=== PATIENT | female | born 1935 | race Caucasian/White ===

== ENCOUNTER 2016-11-27 13:03 | Inpatient (IN) ==
[2016-11-27 13:53] LABS: ALLEN TEST YES; BE 1.2 mmoll (-3.0-3.0); BLOOD TYPE ARTERIAL; DRAW SITE R RADIAL; O2(CT) 15.6 mL/dL (15.0-23.0); PCO2(98.6) 41 mmHg (35-45); PO2(98.6) 68 mmHg (60-100); SAMPLE BLOOD; SAO2 96.5 % (95.0-100.0); THB 11.8 g/dL (11.5-17.4); pH(98.6) 7.41 (7.35-7.45)
[2016-11-27 13:54] LABS: MODALITY ROOM AIR
[2016-11-27 14:19] LABS: URINE MICRO REVIEW NEEDED? NO; URINE SOURCE CATH
[2016-11-27 14:26] LABS: BILIRUBIN URINE NEGATIVE (NEGATIVE); BLOOD URINE NEGATIVE (NEGATIVE); COLOR YELLOW; GLUCOSE URINE NEGATIVE (NEGATIVE); LEUKOCYTES URINE SMALL (NEGATIVE); NITRITE URINE POSITIVE (NEGATIVE); PROTEIN URINE TRACE mg/dL (NEGATIVE); SP GRAVITY URINE 1.011; TURBIDITY URINE CLEAR (CLEAR); UR EPITHELIAL CELLS <10 /HPF (<10); URINE BACTERIA 4+ /HPF; URINE CULTURE NEEDED? YES; URINE RBC <10 /HPF (<10); UROBILINOGEN URINE NORMAL (NORMAL)
--- NOTE | 2016-11-27 14:44 | Diag Imaging Result Doc PS360 ---
CT HEAD W/O CONTRAST - 11/27/2016 INDICATION: AMS ED3 TECHNIQUE: A CT dose reduction protocol was used. COMPARISON: 11/21/2016 FINDINGS: Stable atrophy and chronic microvascular disease. No intracranial mass or hemorrhage. IMPRESSION: No acute disease or change from prior. Electronically signed by Spike Stone 11/27/2016 2:41 PM
--- NOTE | 2016-11-27 14:47 | Diag Imaging Result Doc PS360 ---
CHEST-PORTABLE - 11/27/2016 INDICATION: AMS TECHNIQUE: COMPARISON: 11/21/2016 FINDINGS: Lung volumes are lower. Accounting for this, there is decrease in the perihilar infiltrates. Heart size is borderline stable from prior. No substantial infiltrates. IMPRESSION: Mixed changes. Improved from prior. Electronically signed by Spike Stone 11/27/2016 2:45 PM
[2016-11-27] MEDS ORDERED: ROCEPHIN 1 GM in NS 50 ML IV ONE (15:27)
[2016-11-27 15:31] LABS: MANUAL DIFF NEEDED? NO
[2016-11-27] MEDS ORDERED: LABETALOL IV ONE (15:37)
[2016-11-27] MEDS ORDERED: LABETALOL ONE (15:39)
[2016-11-27 15:45] LABS: BASO% 0.5 % (0.0-0.8); EOS# 0.34 X1000 (0.0-0.7); EOS% 5.6 % (0.0-10.0); HEMATOCRIT 38.3 % (37.0-47.0); HEMOGLOBIN 12.5 g/dL (12.0-16.0); IMM GRAN# 0.06 X1000 (0.0-0.04); LYMPH# 1.38 X1000 (1.2-3.4); LYMPH% 22.9 % (20.5-51.1); MCH 29.6 PG (27-31); MCHC 32.6 g/dL (33-37); MCV 90.5 FL (81-99); MONO# 0.53 X1000 (0.11-0.59); MONO% 8.8 % (1.7-9.3); MPV 10.1 FL (7.4-10.4); NEUT% 61.2 % (42.2-75.2); PLT 371 X1000 (130-400); RBC 4.23 XMIL (4.2-5.4)
[2016-11-27 15:51] LABS: INR 1.08; PROTIME 11.4 Seconds (9.2-11.7); PTT 28.5 Seconds (22.0-36.0)
[2016-11-27 16:00] LABS: ALBUMIN 3.2 g/dL (3.5-5.0); CALCIUM 8.9 mg/dL (8.8-10.2); POTASSIUM 4.6 mmol/L (3.5-5.1); TOTAL BILIRUBIN 0.45 mg/dL (0.20-1.00)
--- NOTE | 2016-11-27 16:34 | PROVIDER DOCUMENTATION ---
This chart was entered by Leeann Álvarez Scribe, acting as scribe for Stacie Thomas MD. HPI-General Adult - General Chief Complaint: Altered Mental Status Stated Complaint: AMS Time Seen by Provider: 11/27/16 13:23 Source: EMS Allergies/Adverse Reactions: Patient Allergies Allergy/AdvReac Type Severity Reaction Status Date / Time levofloxacin [From Levaquin] Allergy RASH Verified 11/21/16 16:57 Penicillins Allergy HIVES Verified 11/21/16 16:57 Sulfa (Sulfonamide Allergy FEVER Verified 11/21/16 16:57 Antibiotics) Home Medications: Home Medication List Medication Instructions Recorded Confirmed Last Taken Type Fenofibric Acid D.r. [Trilipix] 135 mg PO DAILY 11/09/13 11/21/16 11/21/16 History Metformin [Glucophage] 750 mg PO HS 11/09/13 11/21/16 1 Day Ago History Omeprazole [Prilosec] 40 mg PO DAILY PRN PRN 11/09/13 11/21/16 1 Month Ago History Raloxifene [Evista] 60 mg PO DAILY 11/09/13 11/21/16 11/21/16 History Simvastatin 80 mg PO HS 11/09/13 11/21/16 1 Day Ago History ENALApril [Vasotec] 10 mg PO BID 02/19/14 04/27/16 11/21/16 History Levothyroxine Sodium [Levoxyl] 137 mcg PO DAILY 02/19/14 11/21/16 11/21/16 History Tramadol/APAP [Ultracet 1 each PO Q6H PRN PRN 12/21/15 11/21/16 1 Day Ago History 37.5MG/325Mg] Buspirone HCl [Buspirone HCl] 15 mg PO QAM 11/21/16 11/21/16 11/21/16 History Clindamycin [Cleocin] 150 mg PO Q6HR #30 capsule 11/21/16 Unknown Rx Hydrocodone Bit/Acetaminophen 1 each PO Q8H PRN 11/21/16 11/21/16 11/20/16 History [Hydrocodon-Acetaminophen 5-325] Nadolol [Corgard] 20 mg PO DAILY 11/21/16 11/21/16 11/21/16 History Trazodone HCl 150 mg PO QHS 11/21/16 11/21/16 1 Day Ago History - History of Present Illness -Gen Adult Nature of Presenting Problems: Pt is 81 y/o F presents to the ED via EMS for generalized malaise and pain "all over". EMS states daughter called EMS. EMS states Pt was seen in ED 2 days ago for possible stroke. EMS states Pt seen PCP yesterday and was diagnosed with sinusitis. Location of Pain/Injury: reports: generalized Pain Radiation: reports: no radiation Quality of Pain: reports: aching Severity: reports: mild Onset/Duration: reports: just prior to arrival Timing: reports: still present Context/Activities at Onset: reports: light activity Modifying Factors: improves with: nothing Associated Symptoms: reports: muscle aches. denies: anxiety, arm pain, back/ neck pain, chest pain, constipation, cough, diaphoresis, diarrhea, dizziness, EENT symptoms, fatigue, fever/chills, genitourinary problems, headaches, heartburn, joint pain, loss of appetite, malaise, sinus congestion/drainage, nausea, rash, seizure, shortness of breath, sensory/motor loss, pain with inspiration, swelling/mass in abdomen, syncope, vomiting, weakness, trouble walking Similar Symptoms Previously?: Yes Recently seen or treated by another doctor?: Yes (seen PCP yesterday ) Review of Systems - Adult - REVIEW OF SYSTEMS - ADULT Constitutional: denies: chills, fever Eyes: denies: decreased vision, blurred vision, double vision Ears, Nose, Mouth & Throat: denies: ear pain, nose pain, mouth swelling, throat pain Cardiovascular: denies: chest pain, heart murmur, irregular heart rate Respiratory: denies: cough, shortness of breath, wheezing Gastrointestinal: denies: abdominal pain, diarrhea, nausea, vomiting Genitourinary: denies: dysuria, flank pain, hematuria Musculoskeletal: reports: muscle aches (generalized). denies: back pain, joint pain, neck pain Integumentary: denies: hives, itching, rash Neurological: reports: other (confusion). denies: dizziness/vertigo, headache/ migraines, numbness, seizure, syncope Psychiatric: denies: anxiety, depression, suicidal thoughts Endocrine: reports: no symptoms reported Hematologic/Lymphatic: reports: no symptoms reported Allergic/Immunologic: reports: no symptoms reported All Other Systems: Reviewed and Negative Past History - Adult - PAST MEDICAL HISTORY-ADULT Review of Records: reports: Nursing Assessment Review, Medications Reviewed, Social history reviewed & non-contributory. Major Childhood Illnesses: reports: denies history Cardiovascular: reports: HTN Respiratory: reports: denies history Gastrointestinal: reports: denies history Obstetrical/Gynecological: reports: denies history Genitourinary: reports: denies history Musculoskeletal: reports: other (bilateral knee replacement) Neurological: reports: denies history Endocrine/Immune: reports: Diabetes, thyroid disorder Other Conditions: reports: denies history - PRIOR SURGERIES/PROCEDURES Surgical/Procedure History: reports: hysterectomy, tonsillectomy, joint replacement (knee and hip) - IMMUNIZATION STATUS Childhood Immunizations: See Nurse Assessment Flu Vaccine: See Nurse Assessment - FAMILY HISTORY Family History: reviewed, not pertinent - SOCIAL HISTORY Smoking: quit greater than 1 year, cigarettes Substance Use: denies Living Situation: family Physical Exam-General - PHYSICAL EXAM-ADULT Initial Vital Signs Reviewed: Yes - CONSTITUTIONAL General Appearance: alert, no apparent distress, slow to respond, other ( confusion). negative: lethargic - EYES Eyes: PERRL/EOMI, pink conjunctivae. negative: pale conjunctivae, sunken eyes - HEAD, EARS, NOSE, MOUTH & THROAT HENMT: normocephalic/atraumatic, moist mucous membranes, normal ENT inspection. negative: angioedema, hearing deficit - NECK Neck: non-tender, normal inspection. negative: lymphadenopathy, tender lateral - RESPIRATORY Respiratory: chest non-tender, lungs clear, normal breath sounds. negative: crackles, rhonchi, increased rate - CARDIOVASCULAR Cardiovascular: normal peripheral pulses, regular rate, rhythm. negative: tachycardia, systolic murmur - GASTROINTESTINAL (ABDOMEN) Abdominal Exam: normal bowel sounds, non tender, soft. negative: distended, rebound - LYMPHATIC Lymphatic: no adenopathy. negative: enlargement, streaking - MUSCULOSKELETAL Back Exam: normal inspection, no CVA tenderness, no vertebral tenderness. negative: ecchymosis, swelling Extremity: normal range of motion, normal inspection. negative: erythema, swelling - SKIN Integumentary: normal color, normal turgor, warm/dry. negative: ecchymosis, erythema, pallor - NEUROLOGIC Neurologic: other (confusion). negative: grossly normal, facial droop - PSYCHIATRIC Psych/Mental Status: other (confusion). negative: normal mood/affect, anxious, paranoid, tearful Progress - PLAN OF CARE/RESULTS Progress/Plan/Lab Results: Vital Signs - 8 hr 11/27/16 13:30 Temperature 97.9 F Pulse Rate 72 Respiratory Rate 18 Blood Pressure 152/138 O2 Sat by Pulse Oximetry 98 Laboratory Results - last 24 hr 11/27/16 11/27/16 11/27/16 13:40 13:45 15:16 WBC RBC Hgb Hct MCV MCH MCHC RDW Std Deviation Plt Count MPV Immature Gran % (Auto) Neut % (Auto) Lymph % (Auto) [place] % (Auto) Eos % (Auto) Baso % (Auto) Immature Gran # (Auto) Neut # (Auto) Lymph # (Auto) [place] # (Auto) Eos # (Auto) Baso # (Auto) PT INR PTT (Actin FS) Specimen Type ARTERIAL Sample Site R RADIAL pH 7.41 pCO2 41 pO2 68 HCO3 25.8 Base Excess 1.2 Oxyhemoglobin 94.1 L ABG O2 Sat (Calculated) 15.6 ABG O2 Saturation 96.5 ABG Carboxyhemoglobin 1.50 ABG Methemoglobin 1.0 Sterling Test YES A-a O2 Difference 30.0 Total Hemoglobin 11.8 Lactate 0.60 Blood Gas Modality ROOM AIR FiO2 % 21.0 Sodium Potassium Chloride Carbon Dioxide Anion Gap BUN Creatinine Estimated GFR/1.73 m2 BUN/Creatinine Ratio Glucose Calculated Osmolality Calcium Total Bilirubin AST ALT Alkaline Phosphatase Creatine Kinase Troponin T Total Protein Albumin Globulin Albumin/Globulin Ratio Plasma Lactate Urine Source CATH Urine Color YELLOW Urine Turbidity CLEAR Urine pH 6.0 Ur Specific Mcclave 1.011 Urine Protein TRACE A Ur Glucose (Stick) NEGATIVE Ur Ketones (Stick) NEGATIVE Urine Blood NEGATIVE Urine Nitrite POSITIVE A Urine Bilirubin NEGATIVE Urobilinogen Dipstick NORMAL Urine Leukocytes SMALL A Urine WBC (Auto) 10-20 A Urine RBC (Auto) <10 U Epithel Cells (Auto) <10 Urine Bacteria (Auto) 4+ Plasma/Serum Ethyl Alc 11/27/16 11/27/16 11/27/16 15:16 15:16 15:16 WBC 6.02 RBC 4.23 Hgb 12.5 Hct 38.3 MCV 90.5 MCH 29.6 MCHC 32.6 L RDW Std Deviation 15.2 H Plt Count 371 MPV 10.1 Immature Gran % (Auto) 1.0 H Neut % (Auto) 61.2 Lymph % (Auto) 22.9 Essex % (Auto) 8.8 Eos % (Auto) 5.6 Baso % (Auto) 0.5 Immature Gran # (Auto) 0.06 H Neut # (Auto) 3.68 Lymph # (Auto) 1.38 Essex # (Auto) 0.53 Eos # (Auto) 0.34 Baso # (Auto) 0.03 PT INR PTT (Actin FS) Specimen Type Sample Site pH pCO2 pO2 HCO3 Base Excess Oxyhemoglobin ABG O2 Sat (Calculated) ABG O2 Saturation ABG Carboxyhemoglobin ABG Methemoglobin Sterling Test A-a O2 Difference Total Hemoglobin Lactate Blood Gas Modality FiO2 % Sodium 133 L Potassium 4.6 Chloride 96 L Carbon Dioxide 27 Anion Gap 10 BUN 23 H Creatinine 1.3 H Estimated GFR/1.73 m2 39 BUN/Creatinine Ratio 18 Glucose 90 Calculated Osmolality 270 Calcium 8.9 Total Bilirubin 0.45 AST 28 ALT 12 Alkaline Phosphatase 30 L Creatine Kinase 39 Troponin T Total Protein 6.0 L Albumin 3.2 L Globulin 2.8 Albumin/Globulin Ratio 1.1 Plasma Lactate 0.9 Urine Source Urine Color Urine Turbidity Urine pH Ur Specific Mcclave Urine Protein Ur Glucose (Stick) Ur Ketones (Stick) Urine Blood Urine Nitrite Urine Bilirubin Urobilinogen Dipstick Urine Leukocytes Urine WBC (Auto) Urine RBC (Auto) U Epithel Cells (Auto) Urine Bacteria (Auto) Plasma/Serum Ethyl Alc 11/27/16 11/27/16 15:16 15:16 WBC RBC Hgb Hct MCV MCH MCHC RDW Std Deviation Plt Count MPV Immature Gran % (Auto) Neut % (Auto) Lymph % (Auto) [place] % (Auto) Eos % (Auto) Baso % (Auto) Immature Gran # (Auto) Neut # (Auto) Lymph # (Auto) [place] # (Auto) Eos # (Auto) Baso # (Auto) PT 11.4 INR 1.08 PTT (Actin FS) 28.5 Specimen Type Sample Site pH pCO2 pO2 HCO3 Base Excess Oxyhemoglobin ABG O2 Sat (Calculated) ABG O2 Saturation ABG Carboxyhemoglobin ABG Methemoglobin Sterling Test A-a O2 Difference Total Hemoglobin Lactate Blood Gas Modality FiO2 % Sodium Potassium Chloride Carbon Dioxide Anion Gap BUN Creatinine Estimated GFR/1.73 m2 BUN/Creatinine Ratio Glucose Calculated Osmolality Calcium Total Bilirubin AST ALT Alkaline Phosphatase Creatine Kinase Troponin T 0.017 Total Protein Albumin Globulin Albumin/Globulin Ratio Plasma Lactate Urine Source Urine Color Urine Turbidity Urine pH Ur Specific Mcclave Urine Protein Ur Glucose (Stick) Ur Ketones (Stick) Urine Blood Urine Nitrite Urine Bilirubin Urobilinogen Dipstick Urine Leukocytes Urine WBC (Auto) Urine RBC (Auto) U Epithel Cells (Auto) Urine Bacteria (Auto) Plasma/Serum Ethyl Alc Orders Category Date Time Status Cardiac Monitoring DIRECTED Care 11/27/16 13:39 Active Finger Stick Blood Sugar (ED) DIRECTED Care 11/27/16 13:39 Active Mann Cath Insertion ORDERED Care 11/27/16 14:18 Inactive IV Insertion ORDERED Care 11/27/16 13:57 Completed Mini Cath [Straight Catheterization] ORDERED Care 11/27/16 13:58 Active Saline Loc NOW Care 11/27/16 13:39 Active CHEST-PORTABLE [RAD] Stat Exams 11/27/16 13:[address] HEAD W/O CONTRAST [CT] Stat Exams 11/27/16 13:40 Completed ABG [RESP] Routine Lab 11/27/16 13:40 Completed ALCOHOL BLOOD Stat Lab 11/27/16 15:16 Completed BLOOD CULTURE [BLDCUL] Stat Lab 11/27/16 15:12 Results CBC WITH ELECTRONIC DIFF [HEME] Stat Lab 11/27/16 15:16 Completed CK PROFILE [SP CHEM] Stat Lab 11/27/16 15:16 Completed COMPREHENSIVE METABOLIC PANEL [CHEM] Stat Lab 11/27/16 15:16 Completed LACTATE, PLASMA [CHEM] Stat Lab 11/27/16 15:16 Completed PROTIME WITH INR [COAG] Stat Lab 11/27/16 15:16 Completed PTT [COAG] Stat Lab 11/27/16 15:16 Completed TROPONIN T Stat Lab 11/27/16 15:16 Completed URINALYSIS W/POSS RFLX CULT-1 [URINALYSIS] Stat Lab 11/27/16 13:45 Completed URINE CULTURE [RM] Routine Lab 11/27/16 14:31 Received CefTRIAXONE [Rocephin] 1 gm Med 11/27/16 15:27 Discontinued 0.9% Sodium Chloride Inj [Ns] 50 ml IV NOW Labetalol Med 11/27/16 15:37 Discontinued 15 mg IV NOW ONE Labetalol Med 11/27/16 15:39 Discontinued 20 mg .ROUTE .STK-MED ONE Pulse Oximetry Stat Oth 11/27/16 13:39 Active EKG [EKG] Stat Ther 11/27/16 13:39 Ordered Result Diagrams: 11/27/16 15:16 11/27/16 15:16 - XRAY 1 XRAY Study: Chest Impression: Normal XRAY Interpretation: mixed changes. improved from prior - CT/MRI 1 CT Study: Head Impression: Normal CT Results: no acute disease or change from prior - CONSULTS/PCP/HOSPITALIST Notification #1 *Consult/PCP/Hospitalist*: Dr. Domínguez Time Discussed: 16:27 (Admit to Dr. Choi ) Reason/Comments: Dr. Thomas consulted with Dr. Domínguez about Pt Consult Disposition: Will see in ED Departure - Departure Date of Disposition Decision: 11/27/16 Time of Disposition Decision: 16:31 DIAGNOSIS: Altered mental status, UTI (urinary tract infection), Generalized weakness, HTN (hypertension) Disposition: ADMITTED INPATIENT 09 Certified Medical Emergency: Emergent Condition: Stable Referrals and Follow-Ups: Orlando Choi Jr, MD [Primary Care Provider] - - Critical Care Note This patient required my direct & personal management of CC.: No Attestation - Physician/ PARRISH Attestation Patient care was provided by Advanced Practice Provider:: No The physician spent face to face time with patient:: Yes Advanced Practice Provider documentation review:: Supervising physician onsite and consulted in the evaluation and care of this patient. The physician did have a face to face encounter with the patient. This chart was documented by the indicated scribe, (Leeann Álvarez Scribe) and accurately reflects the services I performed and decisions made by me, Stacie Thomas MD, as attested by the provider's signature.
[2016-11-27] MEDS ORDERED: ZOFRAN IV PRN (20:06)
[2016-11-27] MEDS: ASPIRIN PO SCH (20:06)
[2016-11-27] MEDS: TYLENOL PO PRN (20:34)
--- NOTE | 2016-11-27 20:34 | HISTORY AND PHYSICAL ---
CHIEF COMPLAINT: Confusion. HISTORY OF PRESENT ILLNESS: The patient is an 81-year-old white female followed by Dr. Orlando Choi who presents to the emergency room for evaluation. She is brought in by her and her daughter. They relate that the patient was found this morning around 10:30 to have confusion, difficulty with word finding and some garbled speech and general confusion and not able to walk due to some weakness in her legs. There has been no history of fever, the patient does admit to some dysuria. She had been sick for about 6 days and was brought into the ER about 6 days ago for evaluation, was thought to have a sinus infection at that time and was treated with clindamycin for that through the ER. She followed up with Dr. Chio 3 days ago in his office and adjustments were made on her blood pressure medicine as she was running high. She also has been having chronic back pain over the last year and has been followed by Dr. Anthony Cartagena for that, neurosurgery. She also has undergone a right hip replacement per Dr. Ellison, orthopedists in July 2016 but pain in her back area persisted so Dr. Cartagena has been following her and she was scheduled to have an epidural placed yesterday but that was not performed as the patient's blood pressure was found to be very high with systolics well above 200 so she was sent home. She did well, was ambulating with a walker without great difficulty but this morning around 10:30 began having problems. MEDICATIONS: Prior to admission are trazodone 150 mg p.o. at bedtime, Ultracet 1 p.o. q.6 hours p.r.n. pain, Zocor 80 mg p.o. at bedtime, Evista 60 mg p.o. daily, Prilosec 40 mg p.o. daily p.r.n., Corgard 20 mg p.o. daily, metformin 750 mg p.o. at bedtime, Levoxyl 137 mcg 1 p.o. daily, Hurley 5 one p.o. q.8 hours p.r.n. pain, Trilipix 135 mg p.o. daily, Vasotec 10 mg p.o. b.i.d., clindamycin 150 mg p.o. q.6 hours, BuSpar 15 mg p.o. q.a.m. ALLERGIES: To Levaquin, penicillin, sulfa. PAST MEDICAL HISTORY: 1. Hypertension. 2. Hyperlipidemia. 3. Hearing loss. 4. Osteopenia. 5. Type 2 diabetes mellitus. 6. Vertigo. 7. Osteoarthritis. 8. Chronic low back pain with history of herniated disk followed by Dr. Anthony Cartagena. PAST SURGICAL HISTORY: 1. Right total hip replacement July 2016. 2. Bladder surgery x3. 3. Cataract surgery. 4. Hysterectomy 1987. 5. Right total knee and left total knee 2004. 6. Tonsillectomy 1958. 7. Cystocele and rectocele repair 1983. 8. Bilateral carpal tunnel syndrome release on the right in the and on the left 2009. 9. Hemorrhoidectomy in 1983. FAMILY HISTORY: Notable for stroke in her father, hypertension in her father and mother, type 2 diabetes mellitus in her mother and sister. CAD in her father and mother and son, brother with Alzheimer dementia. SOCIAL HISTORY: Patient lives in the local area. She is , is a former smoker, does not drink alcohol. ROS: Positive for dysuria. PHYSICAL EXAMINATION: VITAL SIGNS: Temperature 97.9 degrees, pulse 72, respirations 18, blood pressure 152/138, O2 saturation on 2 L in room air 98%, weight 160, height 5 feet 4 inches tall. GENERAL: Elderly white female confused, does look about, she is alert. She seems to have garbled speech. She is alert and oriented x1. SKIN: No rash or skin breakdown. HEENT: NC/AT, IZA, EOMI. Sclerae clear. OP no redness. Tongue in the midline. NECK: No LA, TMG, JVD, bruits. CARDIOVASCULAR: RRR without distinct murmur. LUNGS: Fairly clear to auscultation. ABDOMEN: Soft, active bowel sounds, nontender, nondistended, no mass, organomegaly. BREASTS/PELVIC/RECTAL: Deferred. EXTREMITIES: No calf tenderness, cords or edema. NEURO: Cranial nerves 2-12 are intact. She moves all extremities well. DTRs are equal. UES and LE 2+ over 4. Normal Babinski sign bilaterally, garbled speech is prominent with general confusion, alert, oriented x1, word finding difficulties , garbled speech most prominent. LABS: White count of 6.02, hemoglobin 12.5, hematocrit 38.3, MCV 90.5, platelets 371,000, neutrophils 61, lymphocytes 23, monocytes 8.8. PT 11.4, INR 1.08, PTT 28.5. ABG on room air reveals pH 7.41, pCO2 41, PO2 68, HC03 25.8, O2 saturation 96.5. Sodium 133, potassium 4.6, chloride 96, CO2 27, BUN 23, creatinine 1.3, glucose 90, calcium 8.9, total bilirubin 0.45, AST 28, ALT 12, alkaline phosphatase 30, total protein 6.0, albumin 3.2, creatine kinase total 39, troponin 0.017, plasma lactate 0.9. Urinalysis shows positive nitrite, 10-20 WBCs, less than 10 epithelial cells, 4+ bacteria, negative blood. Blood alcohol level 0. CT scan of the head without contrast was done and shows stable atrophy and chronic microvascular disease. No intracranial mass or hemorrhage. Chest x-ray shows decrease in minimal perihilar infiltrates, no substantial infiltrates, heart size borderline. ASSESSMENT: 1. Mental status change with garbled speech. Suspect acute ischemic cerebrovascular accident. 2. Urinary tract infection. 3. Pronounced hypertension. 4. Dyslipidemia. 5. Type 2 diabetes mellitus. 6. Chronic back pain. 7. Anxiety. 8. Hypothyroidism. 9. Gastroesophageal reflux disease. 10. Osteopenia. 11. Chronic insomnia. PLAN: At this time will admit the patient to the ICU with telemetry bed, monitor blood pressure and hold BP medications. Will allow this to run high at this point. She is not a candidate for tPA as it has been greater than 6 hours since her development of symptoms and less than 6 months since a major surgery in her right hip. Will start aspirin 325 mg daily if her swallowing mechanism is spared. Keep her NPO otherwise. Monitor Accu-Cheks. She has received 1 g of Rocephin IV in the emergency room. Will continue that q.24 hours while monitoring urine culture and blood cultures which have been obtained. Will follow neurological checks, start speech therapy. Check carotid Dopplers and echocardiogram. cc: Vamsi Domínguez MD
[2016-11-27] MEDS: NS + KCL 20 MEQ 1,000 ML IV SCH (23:09)
[2016-11-28 05:45] LABS: FREE T4 1.7 ng/dL (0.93-1.70)
[2016-11-28] MEDS ORDERED: SYNTHROID PO ONE (08:26)
[2016-11-28] MEDS ORDERED: PRILOSEC PO PRN (08:32)
--- NOTE | 2016-11-28 09:06 | PROGRESS NOTE ---
DATE: 11/28/2016 SUBJECTIVE: Patient much improved this morning. She remains in the ICU. She is alert and oriented x4. OBJECTIVE: Vital Signs: Afebrile. Pulse 73, respirations 19, blood pressure has gone up this morning above 200 to 212 systolic. It was 141/60 at 3 a.m. CV: RRR. Lungs: CTA. Abdomen: Nontender and nondistended. Extremities: No edema. CULTURES: Urine culture and blood cultures remain in progress. ASSESSMENT: 1. Mental status change possibly multifactorial related to urinary tract infection. Rule out transient ischemic attack or cerebrovascular accident. Rule out pain medication buildup. 2. Urinary tract infection. 3. Pronounced hypertension. 4. Dyslipidemia. 5. Type 2 diabetes mellitus. 6. Chronic back pain. 7. Anxiety. 8. Hypothyroidism. 9. Gastroesophageal reflux disease. 10. Osteopenia. 11. Chronic insomnia. PLAN: Plan at this time is that we will advance her diet to a diabetic diet. Resume home BP medications of Corgard and Vasotec. Give p.r.n. hydralazine to keep her blood pressure in moderate control at this time. Continue daily aspirin and Rocephin. Resume home medications, except for most of her pain medication, and will hold her metformin at this time. Monitor Accu- Chek's on the ADA diet. We will follow her urine culture and blood cultures. Keep her in ICU today and hopefully transfer her out to a telemetry bed tomorrow if she continues to improve. Will plan on carotid Dopplers and echocardiogram Wednesday when those tests are readily available. cc: MD Orlando Romo Jr, MD
[2016-11-28] MEDS: ASPIRIN PO SCH (09:43)
[2016-11-28] MEDS: VASOTEC PO SCH ×2 (09:43→20:14)
[2016-11-28] MEDS: CORGARD PO SCH (09:43)
[2016-11-28] MEDS: BUSPAR PO SCH (09:44)
[2016-11-28] MEDS: TRILIPIX PO SCH (09:44)
[2016-11-28] MEDS: APRESOLINE IV PRN ×2 (11:37→23:22)
[2016-11-28] MEDS: ULTRACET 37.5MG/325MG PO PRN ×2 (11:53→19:24)
[2016-11-28] MEDS: TYLENOL PO PRN (15:03)
[2016-11-28] MEDS: ROCEPHIN 1 GM in NS 50 ML IV SCH (15:04)
[2016-11-28] MEDS: NS + KCL 20 MEQ 1,000 ML IV SCH (19:17)
[2016-11-28] MEDS: ZOCOR PO SCH (20:13)
[2016-11-29 05:07] LABS: MANUAL DIFF NEEDED? NO
[2016-11-29 05:25] LABS: BASO% 0.2 % (0.0-0.8); EOS# 0.45 X1000 (0.0-0.7); EOS% 4.2 % (0.0-10.0); HEMATOCRIT 37.9 % (37.0-47.0); HEMOGLOBIN 12.4 g/dL (12.0-16.0); IMM GRAN# 0.05 X1000 (0.0-0.04); IMM GRAN% 0.5 % (0.0-0.5); LYMPH# 1.71 X1000 (1.2-3.4); MCH 29.5 PG (27-31); MCHC 32.7 g/dL (33-37); MCV 90.2 FL (81-99); MONO# 1.12 X1000 (0.11-0.59); MONO% 10.5 % (1.7-9.3); NEUT% 68.6 % (42.2-75.2); PLT 458 X1000 (130-400)
[2016-11-29 05:35] LABS: CALCIUM 8.5 mg/dL (8.8-10.2); POTASSIUM 4.2 mmol/L (3.5-5.1)
[2016-11-29] MEDS: SYNTHROID PO SCH (06:04)
[2016-11-29] MEDS: CORGARD PO SCH (08:26)
[2016-11-29] MEDS: TRILIPIX PO SCH (08:27)
[2016-11-29] MEDS: ASPIRIN PO SCH (08:27)
[2016-11-29] MEDS: BUSPAR PO SCH (08:27)
[2016-11-29] MEDS: VASOTEC PO SCH ×2 (08:27→20:30)
[2016-11-29] MEDS ORDERED: SALINE LOCK IV FLUID XX ONE (11:16)
[2016-11-29] MEDS: ULTRACET 37.5MG/325MG PO PRN (11:56)
[2016-11-29] MEDS ORDERED: HALDOL IV ONE (11:59)
[2016-11-29] MEDS ORDERED: HALDOL IV PRN (12:00)
[2016-11-29] MEDS: CATAPRES PO PRN (12:10)
--- NOTE | 2016-11-29 12:29 | PROGRESS NOTE ---
DATE: 11/29/2016 SUBJECTIVE: Patient is much more alert and talkative today. No specific complaints. OBJECTIVE: Vital signs: Afebrile. Pulse is 72, respirations 17, blood pressure 202/85, O2 saturation room air 95%. Cardiovascular: RRR. Lungs: CTA. Abdomen: Nontender with active bowel sounds. Nondistended. Back: No CVA tenderness. Extremities: No edema. Neurologic: Cranial nerves 2 through 12 are intact. She is alert and oriented x4. LABORATORY: Urine culture growing out E. coli, sensitive to Rocephin. Blood cultures x2 negative. White count 10.6, hemoglobin 12.4, platelets 458,000, neutrophils 68, lymphocytes 16. Sodium 136, potassium 4.2, chloride 100, CO2 25, BUN 17, creatinine 1.0, glucose 91, calcium 8.5. ASSESSMENT: 1. Mental status change, resolved. Rule out transient ischemic attack. Rule out secondary to urinary tract infection. Rule out plethora of pain medications she has been taking for her back. 2. Escherichia coli urinary tract infection. 3. Pronounced hypertension. 4. Dyslipidemia. 5. Type 2 diabetes mellitus. 6. Chronic back pain. 7. Anxiety. 8. Hypothyroidism. 9. Gastroesophageal reflux disease. 10. Osteopenia. 11. Chronic insomnia. PLAN: We will transfer the patient out to telemetry bed. Increase her Vasotec. Continue Corgard. Add p.r.n. clonidine. Add scheduled hydralazine. Monitor BP closely. Continue IV Rocephin. Discontinue IV fluids. Preliminary reports on the carotid Dopplers are good. Echocardiogram has been done but the results are pending. Continue aspirin daily. cc: MD Orlando Romo Jr, MD
[2016-11-29] MEDS: APRESOLINE PO SCH ×2 (12:45→17:50)
[2016-11-29] MEDS: ROCEPHIN 1 GM in NS 50 ML IV SCH (15:47)
[2016-11-29] MEDS: ZOCOR PO SCH (20:30)
[2016-11-30] MEDS: CATAPRES PO PRN (05:16)
[2016-11-30] MEDS: SYNTHROID PO SCH (07:07)
[2016-11-30] MEDS: TRILIPIX PO SCH (08:26)
[2016-11-30] MEDS: APRESOLINE PO SCH ×3 (08:26→17:33)
[2016-11-30] MEDS: VASOTEC PO SCH ×2 (08:26→20:17)
[2016-11-30] MEDS: ASPIRIN PO SCH (08:26)
[2016-11-30] MEDS: BUSPAR PO SCH ×2 (08:26→10:21)
[2016-11-30] MEDS ORDERED: XANAX PO PRN (08:47)
--- NOTE | 2016-11-30 09:23 | PROGRESS NOTE ---
DATE: 11/30/2016 SUBJECTIVE: The patient is oriented. She is a little anxious today. Apparently, there was some question about her having returned confusion yesterday after she came in the hospital with altered mental status and questionable CVA as well as UTI. She tells me she was not confused, that she was just angry yesterday. It is unclear as it is not documented at this point exactly whether she had altered mental status again yesterday or not but she was kept in the unit again during that time. OBJECTIVE: Vital Signs: Blood pressure is 167/71, respirations are 25 and regular, pulse 61, O2 saturations 95%. HEENT: She is normocephalic. EOMs intact. PERRLA. Throat clear. Lungs: Clear to auscultation and percussion without rhonchi, rales, or wheezes. Heart: Regular rate rhythm without murmurs, gallops, or friction rubs. Abdomen: Soft. Active bowel sounds. No organomegaly or tenderness. ASSESSMENT: 1. Altered mental status. 2. Questionable cerebrovascular accident. 3. Urinary tract infection with E. coli, sensitive to the Rocephin, started. 4. Hypertension, severe. 5. Low back pain. PLAN: We will go ahead and get a consult with neurology and an MRI scan of the head. We will repeat her urinalysis. cc: Orlando Choi Jr, MD
[2016-11-30] MEDS: LONITEN PO SCH (10:21)
[2016-11-30] MEDS: CORGARD PO SCH (10:21)
[2016-11-30 13:14] LABS: URINE CULTURE NEEDED? NO; URINE MICRO REVIEW NEEDED? NO; URINE SOURCE CATH
[2016-11-30 13:28] LABS: BILIRUBIN URINE NEGATIVE (NEGATIVE); BLOOD URINE NEGATIVE (NEGATIVE); COLOR YELLOW; GLUCOSE URINE NEGATIVE (NEGATIVE); LEUKOCYTES URINE NEGATIVE (NEGATIVE); NITRITE URINE NEGATIVE (NEGATIVE); PH URINE 5.5; PROTEIN URINE TRACE mg/dL (NEGATIVE); TURBIDITY URINE CLEAR (CLEAR); UROBILINOGEN URINE NORMAL (NORMAL)
[2016-11-30 13:29] LABS: UR EPITHELIAL CELLS <10 /HPF (<10); URINE BACTERIA NEGATIVE /HPF; URINE RBC <10 /HPF (<10); URINE WBC <10 /HPF (<10)
[2016-11-30] MEDS: ROCEPHIN 1 GM in NS 50 ML IV SCH (15:11)
--- NOTE | 2016-11-30 15:28 | Diag Imaging Result Doc PS360 ---
EXAM: MRI BRAIN W W/O CONTRAST HISTORY: cva TECHNIQUE: MRI of the brain with and without gadolinium; T1 sagittal and axial, T2 and FLAIR and DWI axial, gradient echo coronal, FSPGR T1 weighted post gadolinium axial with coronal reformations. COMMENT: There are patchy and punctate areas of increased T2-weighted signal intensity in the periventricular white matter bilaterally. There is no evidence of bleed or abnormal extra-axial fluid collection. There are prominent perivascular spaces. There is no evidence of abnormal gadolinium enhancement. There is no evidence of restricted diffusion. Compared to the previous examination of 09/26/2013, there has been no appreciable change. IMPRESSION: Chronic ischemic changes. No evidence of acute disease. Electronically signed by Aaron Ann 11/30/2016 3:25 PM
--- NOTE | 2016-11-30 18:09 | CONSULTATION ---
DATE OF CONSULTATION: 11/30/2016 REASON FOR CONSULT: Altered mental status. HISTORY OF PRESENT ILLNESS: 81-year-old right-handed female with a history of hypertension, hyperlipidemia, type 2 diabetes and chronic pain on pain medications was admitted on Wednesday for confusion. The daughter is at bedside who provides most of the history. Apparently the noticed that the patient was more confused and staring. She really was not talking much even. There was nothing focal that they could tell. No weakness on 1 side or the other. No sensory disturbance that they were able to elicit. The patient was evaluated in the emergency room and at that time when she would try to answer questions her speech seemed garbled and unintelligible. Mostly she was just making some noises. Her blood pressure was noted to be elevated. Apparently the patient about a week prior to this had been having headaches which was persistent and unusual for her in terms of its persistency that brought her to the emergency room. Head CT was done and noted a sinus infection therefore she was treated with clindamycin and discharged home. Her blood pressure had been elevated and she had some adjustments to those medications. The day prior to admission her blood pressure was noted to be quite elevated over ~230/117 or so when she presented for an epidural procedure and was turned away. Yesterday around noon, the patient became angry and was trying to pull off equipment and get out of bed to leave. The daughter and note that it seemed she was just angry rather than confused, though they cannot be sure. The patient says she was just angry and remembers the event well. PAST MEDICAL HISTORY: Hypertension, hyperlipidemia, hearing loss, osteopenia, type 2 diabetes, vertigo, osteoarthritis, chronic low back pain on opiate medications, right total hip replacement, bladder surgery, cataract surgery, hysterectomy, knee replacements, tonsillectomy, cystocele and rectocele repair, bilateral carpal tunnel release, hemorrhoidectomy. FAMILY HISTORY: Possible stroke in her father, also positive for hypertension, diabetes, coronary disease. SOCIAL HISTORY: She lives with her . She is a previous smoker. No alcohol or illicits. ALLERGIES: To Levaquin, penicillin and sulfa. MEDICATIONS PRIOR TO ADMISSION: Reviewed in the chart. They include trazodone , Ultracet, Zocor, Evista, Prilosec, Corgard, metformin, Levoxyl, Patten, Trilipix, Vasotec, clindamycin, BuSpar. REVIEW OF SYSTEMS: Balance of 10 was conducted and otherwise negative except that detailed in the HPI. There was some urinary frequency and urgency. PHYSICAL EXAMINATION: Vital Signs: Reviewed in the chart. Her blood pressure has varied ranging from 119-210 over 50s to 141, currently 119/56, much improved, pulse 67, afebrile, respirations 28. General: Elderly female supine in bed asleep, no acute distress , family at bedside. Neck: Supple. No meningismus. Trachea midline. HEENT: Normal. Cardiovascular: Intact pulses. No significant edema. Regular rate and rhythm on telemetry. Lungs: No increased work of breathing. Normal chest rise and expansion. Abdomen: Soft, nontender, nondistended. Extremities: Warm, well perfused. No significant edema. Skin: Warm, dry, and intact. Neurologic: Mental status. She is awake, alert. She is fully oriented currently. Naming is intact including different aspects of watch and glasses. Following simple and complex commands. Normal right, left and digit distinction. Recent and remote memory good. Cranial nerves. Pupils 3 mm reactive each eye, conjugate gaze, ocular movements intact. Face symmetric with equal activation. Facial sensation intact. Tongue is midline. Palate elevates symmetrically. Shoulder shrug full. Motor exam. No drift. Strength is 5/5 and symmetric in the extremities. Sensation is grossly intact to light touch throughout. Coordination. No evidence of incoordination on exam. Reflexes are diminished in the lower extremities. Toes are mute. No clonus. 1+ reflexes bilateral upper extremities. DIAGNOSTICS: Head CT was personally reviewed. There are no acute findings. There is note of atrophy which is seen. Lab work was reviewed in the chart. Normal white count. INR 1.08. BUN 23 on admission now 17, creatinine 1.3 now 1, glucose 85-213. A1c 5.0. LFTs are not elevated. TSH of 6. Free T4 1.7. Urinalysis is positive for UTI. Alcohol is negative. ASSESSMENT AND PLAN: 81-year-old right-handed female with history of hypertension, hyperlipidemia, diabetes presenting with altered mental status in setting of elevated hypertension and urinary tract infection. 1. Global encephalopathy. This may be secondary to her urinary tract infection in setting of the atrophy noted on her CT. She may have at least a mild cognitive impairment at baseline which is undiagnosed. As such this would cause a more protracted course for mental status changes in this setting but should continue to improve with treating the underlying infection. Her blood pressure was significantly elevated per report over the last week or so and has been elevated here in the hospital as well. Hypertensive encephalopathy is also a possibility and could be contributing. Agree with improved blood pressure control. Agree with the MRI of the brain to r/o subacute stroke, though I do not find any focality on her exam currently. The MRI will also give us additional information such as evaluating for PRES. Thank you for this consultation. Will follow. cc: MD Orlando Neumann Jr, MD MTDD
[2016-11-30] MEDS: ZOCOR PO SCH (20:17)
[2016-12-01] MEDS: ULTRACET 37.5MG/325MG PO PRN (00:36)
[2016-12-01] MEDS: SYNTHROID PO SCH (06:12)
[2016-12-01] MEDS: CORGARD PO SCH (08:33)
[2016-12-01] MEDS: BUSPAR PO SCH ×2 (08:33)
[2016-12-01] MEDS: APRESOLINE PO SCH ×2 (08:33→12:15)
[2016-12-01] MEDS: ASPIRIN PO SCH (08:33)
[2016-12-01] MEDS: VASOTEC PO SCH (08:33)
[2016-12-01] MEDS: TRILIPIX PO SCH (08:33)
[2016-12-01] MEDS: LONITEN PO SCH (08:33)
[2016-12-01 11:12] VITALS: BP 131/66
--- NOTE | 2016-12-01 15:35 | DISCHARGE SUMMARY ---
ADMISSION DATE: 11/27/2016 DISCHARGE DATE: 12/01/2016 FINAL DIAGNOSES: 1. Altered mental status. 2. Global encephalopathy. 3. Urinary tract infection. 4. Uncontrolled hypertension. 5. Adult-onset diabetes mellitus. 6. Osteoarthritis. 7. Low back pain with lumbar disk disease. DISCHARGE MEDICATIONS: Will include her home medications, plus hydralazine 50 mg p.o. t.i.d. Please see medication list. CONSULTATION: Neurology, Dr. Lua. HISTORY OF PRESENT ILLNESS: The patient is an 81-year-old, white female who came in with agitation, altered mental status and garbled speech, with generalized confusion. Initially thought that she may have had a CVA, but she had no focal signs. Initial CT scan of the head shows some atrophy, but was otherwise normal. We did an MRI scan of her brain yesterday and it showed the atrophy as well, but no acute changes. She did have a UTI with E. coli that was sensitive to Rocephin, which is what she was started on in the hospital. We repeated the urinalysis yesterday, and it was completely clear. I feel like that her urinary tract infection has resolved. Her confusion got much better after a day or two in the hospital, then on Wednesday there was some question about whether she had some more confusion, and that was what was reported to me by the nurses; however, the patient and the patient's family said that she was not confused at that time, that she is angry about someone at home, and that she was acting out somewhat there. Apparently, that was not very well discernible by the nursing staff and the physician that day while talking to the patient. Nevertheless, because there was concern that she might have had a change in mental status after getting better for treatment of her UTI, we did consult Neurology, who felt like she did probably have a global encephalopathy, either from her very high blood pressure or from her UTI, or possibly both. Blood pressure is now better after adding hydralazine. PHYSICAL EXAMINATION: Vital signs: Blood pressure was 154/68, and then came up to 173/75, respirations 22, pulse is 67, temp 98.2 degrees Fahrenheit. Blood pressure recently has been very difficult to regulate. Even earlier this morning it was only 138/57. HEENT: She is normocephalic. EOMS intact, PERRLA. Throat clear. Lungs: Clear to auscultation and percussion without rhonchi, rales, or wheezes. Heart: Regular rate rhythm, without murmurs, gallops, or friction rubs. Abdomen: Soft. Active bowel sounds. No organomegaly or tenderness. Neurological: Cranial nerves 2 through 12 intact grossly. Sensory and motor intact. The patient is not confused at this time. She is oriented x3. DISPOSITION: We will DC home, and we will see back in the office in 2 days. She is to bring all her medicines with her. We will re-evaluate her hypertensive problems at that time, as well as her mentation. cc: Orlando Choi Jr, MD
--- NOTE | 2016-12-02 07:41 | Carotid Study ---
DATE: 11/27/2016 PROCEDURE: Bilateral duplex and color flow imaging of the carotid arteries was performed using the Nu-B-2B Vivid E9 ultrasound system with a 9L-D transducer. REFERRING PHYSICIAN: Vamsi Domínguez MD. INTERPRETING PHYSICIAN: Adrian Castro MD. TECH: [place]. INDICATIONS: Slurred speech, CVA, and altered mental status. OBSERVED DATA RIGHT LEFT Brachial Blood Pressure Carotid Pulse Bruits: Carotid/Sub DIAGRAM OF ULTRASOUND IMAGING R L RIGHT INT EXT INT EXT LEFT Quirino (cm/s) Quirino (cm/s) Subclavian 103/0 Subclavian 75/0 CCA Proximal 59/6 CCA Proximal 57/5 CCA Distal 51/7 CCA Distal 53/8 Bulb 51/9 Bulb 73/10 ICA Proximal 56/7 ICA Proximal 67/8 ICA Mid 58/9 ICA Mid 58/8 ICA Distal 47/5 ICA Distal 61/11 ECA 56/0 ECA 66/0 Vertebral 44/8 Vertebral 36/6 ICA/CCA Ratio 0.99 ICA/CCA Ratio 1.18 % Stenosis 0-39 % Stenosis 0-39 FINDINGS: Minimal atherosclerosis at this time does not produce by strict velocity criteria hemodynamically significant flow-limiting stenosis. Both vertebral arteries are antegrade flow. INTERPRETATION: By strict velocity criteria, essentially normal bilateral carotid ultrasound study. cc: MD Vamsi Mckinney MD Roger H. Moss Jr, MD
--- NOTE | 2016-12-02 10:21 | ECHO REPORT ---
ORDER DATE: 11/27/2016 PROCEDURE: A 2D echocardiogram. ECHOCARDIOGRAPHIC MEASUREMENTS: 1. Interventricular septum 1.4, left ventricle posterior wall 1.2, diastolic diameter 4.1, left atrium 4.1, aorta 3.1. 2. There is biatrial enlargement. Mitral valve leaflets are normal. There is mitral annular calcification. Aortic valve leaflets are trileaflet. Tricuspid valve was normal. Pulmonic valve was normal. 3. Peak velocity across the aortic valve 2.2 m/sec. There is no aortic stenosis or regurgitation. There is mild mitral regurgitation. 4. There is mild tricuspid regurgitation. Peak velocity across the tricuspid valve less than 2 m/sec. 5. There is mild pulmonary regurgitation. 6. There is no aortic stenosis or regurgitation. 7. Normal left ventricular cavity size. Concentric left ventricular hypertrophy. Estimated ejection fraction of 65-70%. There is hyperdynamic circulation. 8. There is no pericardial effusion or obvious intracardiac mass or thrombus seen. cc: MD Vamsi Balderas MD Roger H. Moss Jr, MD
== END 2016-12-01 12:37 | disposition home or self-care (01) ==
LOC: ED 13:03 → ICU 22:01
PROVIDERS: ADMIT Emergency Medicine; ATTEND Emergency Medicine